=== PATIENT | female | born 1930 | race Caucasian/White ===

== ENCOUNTER 2016-10-08 18:00 | Inpatient (IN) | payer OTHER, MEDICAID ==
[~2016-10-08] VITALS: Ht 149.9 cm; Wt 58.1 kg
[2016-10-08 20:19] LABS: BASOPHIL % 1.3 % (0-2); PLATELET COUNT 386 x10^3mcL (130-400)
[2016-10-08 20:22] LABS: RED CELL DISTRIBUTION WIDTH 15.1 % (11.5-14.5)
[2016-10-08 20:29] LABS: CALCIUM 8.9 mg/dL (8.5-10.1); CARBON DIOXIDE 28.7 mmol/L (21-32); CHLORIDE SERUM 104 mmol/L (98-107); CREATININE SERUM 0.9 mg/dL (0.6-1.0); GLUCOSE SERUM 146 mg/dL (74-106); POTASSIUM SERUM 4.5 mmol/L (3.5-5.1); SODIUM SERUM 139 mmol/L (136-145)
[2016-10-08 20:29] LABS: microscopic required? YES; urine erythrocyte NEGATIVE (NEGATIVE)
[2016-10-08 20:32] LABS: ALBUMIN 3.5 g/dL (3.4-5.0); ALKALINE PHOSPHATASE 286 U/L (46-116); ALT/SGPT 259 U/L (14-59); AST/SGOT 812 U/L (15-37); BILIRUBIN TOTAL 2.45 mg/dL (0.20-1.00); LIPASE 308 IU/L (73-393); TOTAL PROTEIN, SERUM 7.3 g/dL (6.4-8.2)
[2016-10-08 20:33] LABS: AMYLASE 118 U/L (25-115)
[2016-10-08] MEDS ORDERED: VITAMIN D50000 I4 PO (21:39)
[2016-10-08] MEDS ORDERED: ASPIR 8181 MG PO (21:40)
[2016-10-08] MEDS ORDERED: GOOD SENSE OMEP20 MG PO (21:40)
[2016-10-08] MEDS ORDERED: FUROSEMIDE20 MG PO (21:41)
[2016-10-08] MEDS ORDERED: METFORMIN HCL850 MG PO (21:41)
[2016-10-08] MEDS ORDERED: GABAPENTIN100 M2 PO (21:41)
[2016-10-08] MEDS ORDERED: DORZOLAMIDE HYD10 M2 OU (21:42)
[2016-10-08] MEDS ORDERED: DIOVAN160 MG PO (21:42)
[2016-10-08 22:07] LABS: MAGNESIUM 1.5 mg/dL (1.8-2.4); PHOSPHOROUS 2.8 mg/dL (2.5-4.9)
[2016-10-08 22:17] LABS: T3 TOTAL 0.92 ng/mL
[2016-10-08 22:18] LABS: FREE T4 1.33 ng/dL (0.76-1.46); FREE THYROXINE INDEX 3.1 ug/dL (1.4-4.5); T4(THYROXINE) 10.4 ug/dL (4.7-13.3)
[2016-10-08 22:39] VITALS: BP 101/45
[2016-10-08 22:40] VITALS: BP 101/45
[2016-10-09 02:36] LABS: AMPHETAMINE QUAL UR NONE DETECTED (NEG <=1000)
[2016-10-09 05:33] VITALS: BP 102/50
[2016-10-09 06:03] LABS: PLATELET COUNT 311 x10^3mcL (130-400)
[2016-10-09 06:22] LABS: CALCIUM 7.7 mg/dL (8.5-10.1); CARBON DIOXIDE 26.2 mmol/L (21-32); CHLORIDE SERUM 107 mmol/L (98-107); CREATININE SERUM 0.9 mg/dL (0.6-1.0); GLUCOSE SERUM 109 mg/dL (74-106); MAGNESIUM 1.6 mg/dL (1.8-2.4); POTASSIUM SERUM 4.2 mmol/L (3.5-5.1); SODIUM SERUM 142 mmol/L (136-145)
[2016-10-09 06:30] LABS: BASOPHIL % 0 % (0-2); RED CELL DISTRIBUTION WIDTH 15.3 % (11.5-14.5)
[2016-10-09 09:59] VITALS: BP 97/41
[2016-10-09 13:07] VITALS: BP 96/45
[2016-10-09 17:31] VITALS: BP 91/47
[2016-10-09 21:00] VITALS: BP 113/58
[2016-10-10 06:30] VITALS: BP 96/50
[2016-10-10 06:40] LABS: BASOPHIL % 0.5 % (0-2); PLATELET COUNT 259 x10^3mcL (130-400)
[2016-10-10 06:55] LABS: RED CELL DISTRIBUTION WIDTH 15.6 % (11.5-14.5)
[2016-10-10 06:58] LABS: CALCIUM 7.7 mg/dL (8.5-10.1); CARBON DIOXIDE 25.5 mmol/L (21-32); CHLORIDE SERUM 106 mmol/L (98-107); CREATININE SERUM 0.7 mg/dL (0.6-1.0); GLUCOSE SERUM 82 mg/dL (74-106); MAGNESIUM 2.4 mg/dL (1.8-2.4); PHOSPHOROUS 2.8 mg/dL (2.5-4.9); POTASSIUM SERUM 4.1 mmol/L (3.5-5.1); SODIUM SERUM 141 mmol/L (136-145)
[2016-10-10 09:08] VITALS: BP 104/46
[2016-10-10 11:05] VITALS: BP 118/61
[2016-10-10 13:22] VITALS: BP 111/59
[2016-10-10 17:50] VITALS: BP 113/59
[2016-10-10 21:42] VITALS: BP 113/64
[2016-10-11 02:22] VITALS: BP 107/40
[2016-10-11 06:19] LABS: BASOPHIL % 0.4 % (0-2); PLATELET COUNT 243 x10^3mcL (130-400)
[2016-10-11 06:25] LABS: CALCIUM 7.9 mg/dL (8.5-10.1); CARBON DIOXIDE 27.8 mmol/L (21-32); CHLORIDE SERUM 108 mmol/L (98-107); CREATININE SERUM 0.7 mg/dL (0.6-1.0); GLUCOSE SERUM 113 mg/dL (74-106); MAGNESIUM 1.6 mg/dL (1.8-2.4); PHOSPHOROUS 2.9 mg/dL (2.5-4.9); POTASSIUM SERUM 4.8 mmol/L (3.5-5.1); SODIUM SERUM 141 mmol/L (136-145)
[2016-10-11 06:39] LABS: RED CELL DISTRIBUTION WIDTH 15.5 % (11.5-14.5)
[2016-10-11 08:30] VITALS: BP 121/48
[2016-10-11 14:07] VITALS: BP 112/58
[2016-10-11 19:19] VITALS: BP 121/77
[2016-10-11 19:45] VITALS: BP 115/46
[2016-10-11 20:54] VITALS: BP 123/67
[2016-10-12 05:57] VITALS: BP 104/55
[2016-10-12 06:15] LABS: CALCIUM 7.9 mg/dL (8.5-10.1); CARBON DIOXIDE 27.9 mmol/L (21-32); CHLORIDE SERUM 109 mmol/L (98-107); CREATININE SERUM 0.6 mg/dL (0.6-1.0); GLUCOSE SERUM 92 mg/dL (74-106); PHOSPHOROUS 2.8 mg/dL (2.5-4.9); POTASSIUM SERUM 4.6 mmol/L (3.5-5.1); SODIUM SERUM 141 mmol/L (136-145)
[2016-10-12 07:36] LABS: PLATELET COUNT 247 x10^3mcL (130-400)
[2016-10-12 07:47] LABS: RED CELL DISTRIBUTION WIDTH 15.8 % (11.5-14.5)
[2016-10-12 10:44] VITALS: BP 139/83
[2016-10-12 11:53] LABS: SEGMENTED NEUTROPHILS 75 % (37-75)
[2016-10-12 11:54] LABS: BAND NEUTROPHIL 1 % (0-10); MONOCYTE 10 % (0-7); rbc morphology (normal/abnorm) ABNORMAL (NORMAL)
[2016-10-12 11:55] LABS: PLATELET MORPHOLOGY N
[2016-10-12 14:33] VITALS: BP 131/38
[2016-10-12] MEDS ORDERED: LAC PO (16:23)
[2016-10-12 18:30] VITALS: BP 145/78
[2016-10-12 21:08] VITALS: BP 116/49; BP 145/78
== END 2016-10-12 22:04 | disposition home health service (06) | DRG 871 ==
LOC: ED 18:00 → DU 21:26 → MU 10-12 10:06
PROVIDERS: Emergency Medicine; Family Medicine; Internal Medicine; ADMIT Family Medicine
PROC: 0FC98ZZ Extirpation of Matter from Common Bile Duct, Via Natural or Artificial Opening Endoscopic (ICD-10-PCS; principal; 2016-10-10 07:30)
PROC: BF10YZZ Fluoroscopy of Bile Ducts using Other Contrast (ICD-10-PCS; 2016-10-10 07:30)
DX: A41.9 Sepsis, unspecified organism (principal); I21.4 Non-ST elevation (NSTEMI) myocardial infarction; I50.41 Acute combined systolic (congestive) and diastolic (congestive) heart failure; N17.0 Acute kidney failure with tubular necrosis; N39.0 Urinary tract infection, site not specified; K80.51 Calculus of bile duct without cholangitis or cholecystitis with obstruction; E83.51 Hypocalcemia; E83.42 Hypomagnesemia; K29.70 Gastritis, unspecified, without bleeding; E80.6 Other disorders of bilirubin metabolism; R65.20 Severe sepsis without septic shock; H40.9 Unspecified glaucoma; K76.0 Fatty (change of) liver, not elsewhere classified; I35.0 Nonrheumatic aortic (valve) stenosis; B96.20 Unspecified Escherichia coli [E. coli] as the cause of diseases classified elsewhere; Z79.82 Long term (current) use of aspirin; Z68.25 Body mass index [BMI] 25.0-25.9, adult; Z96.653 Presence of artificial knee joint, bilateral; Z79.84 Long term (current) use of oral hypoglycemic drugs
CPT/HCPCS: 43262; 80307; 82962; 83880; 84439; 97110-GP; 97116-GP; 97530-GP; C1751; C1769; C9113; J0696; J1610; J1642; J1644; J1940; J2060; J2185; J2250; J2270; J2405; J2704; J2765; J3010; J3475; J3490; J7030; J7040; Q0092; Q9967

== ENCOUNTER 2016-10-24 09:32 | Emergency (ER) | payer MEDICARE, MEDICAID ==
[~2016-10-24] VITALS: Ht 149.9 cm; Wt 61.2 kg
[~2016-10-24 09:32] MED LIST: ASPIR 8181 MG PO; DIOVAN160 MG PO; DORZOLAMIDE HYD10 M2 OU; FUROSEMIDE20 MG PO; GABAPENTIN100 M2 PO; GOOD SENSE OMEP20 MG PO; LAC PO; METFORMIN HCL850 MG PO; VITAMIN D50000 I4 PO
[2016-10-24 11:09] VITALS: BP 137/82
== END 2016-10-24 11:09 | disposition home or self-care (01) ==
LOC: ED 09:32
DX: Z45.2 Encounter for adjustment and management of vascular access device (principal); I10 Essential (primary) hypertension; E11.9 Type 2 diabetes mellitus without complications; Z79.899 Other long term (current) drug therapy